=== PATIENT | female | born 1990 | race Caucasian/White ===

== ENCOUNTER 2021-02-17 09:04 | Emergency (ER) | payer SELFPAY ==
[~2021-02-17] VITALS: Ht 157.5 cm; Wt 56.8 kg
[~2021-02-17 09:04] MED LIST: ULTRAM50 MG PO
[2021-02-17] MEDS ORDERED: AMOX/K CLAV875 M1 PO (09:37)
[2021-02-17 09:51] VITALS: BP 129/85
== END 2021-02-17 09:58 | disposition home or self-care (01) | DRG 153 ==
LOC: ED 09:04
DX: J32.9 Chronic sinusitis, unspecified (principal); F17.200 Nicotine dependence, unspecified, uncomplicated

== ENCOUNTER 2023-01-19 16:37 | Emergency (ER) | payer OTHER ==
[~2023-01-19] VITALS: Ht 152.4 cm; Wt 60.2 kg
[2023-01-19] VITALS (7 sets, daily range): BP systolic 101–131; BP diastolic 57–98
[~2023-01-19 16:37] MED LIST changes: +AMOX/K CLAV875 M1 PO
[2023-01-19] MEDS ORDERED: OB COMPLET2 PO (16:50)
[2023-01-19 17:12] LABS: URINE BILIRUBIN - DIPSTICK NEGATIVE (NEGATIVE); URINE BLOOD DIPSTICK NEGATIVE (NEGATIVE); URINE COLOR YELLOW; URINE GLUCOSE - DIPSTICK NEGATIVE (NEGATIVE); URINE KETONE TRACE mg/dL (NEGATIVE); URINE LEUK ESTERASE NEGATIVE (NEGATIVE); URINE PROTEIN - DIPSTICK NEGATIVE (NEG-TRACE); URINE SPECIFIC GRAVITY 1.025; URINE UROBILINOGEN - DIPSTICK 0.2 E.U./dL (0.2)
[2023-01-19 17:12] LABS: BASO% 0.2 % (0-3); EOS% 0.9 % (0-8); IMMATURE GRANULOCYTES 0.2 % (0.0-5.0); LYMPH% 24.4 % (15-41); MEAN CELL VOLUME 86.1 fL CALC (80.0-100.0); MEAN CORPUSCULAR HGB 29.4 pG CALC (26.0-32.0); MEAN CORPUSCULAR HGB CONC 34.2 g/dL CAL (32.0-36.0); MONO% 7.4 % (2-13); NEUT# 5.79 thou/uL (2.00-7.15); NEUT% 66.9 % (42-76); RED BLOOD COUNT 3.74 mill/uL (4.20-5.60); RED CELL DISTRI WIDTH 12.1 % (11.5-15.5)
[2023-01-19 17:13] LABS: HEMATOCRIT 32.2 % (37.0-47.0)
[2023-01-19 17:13] LABS: URINE NITRITE - DIPSTICK NEGATIVE (Negative)
[2023-01-19 17:26] LABS: ALBUMIN 4.3 g/dL (3.2-5.0); ALKALINE PHOSPHATASE 50 u/l (38-126); ANION GAP 14 (6-22 (CALC)); BUN 5 mg/dL (7-17); BUN/CREATININE RATIO 10 (12-20 (CALC)); CARBON DIOXIDE 21 mmol/l (22-30); CHLORIDE 107 mmol/l (95-108); CREATININE 0.5 mg/dL (0.5-1.0); GFR FOR AFR.AMER. > 60 ML/MIN (>=60 (CALC)); GFR OTHER RACES > 60 ML/MIN (>=60 (CALC)); POTASSIUM 3.9 mmol/l (3.5-5.1); SGOT/AST 20 u/l (14-36); SODIUM 138 mmol/l (137-146); TOTAL PROTEIN 6.9 g/dL (6.3-8.2)
[2023-01-19 18:09] LABS: BETA-HCG, QUANT(RESULT NUMBER) 95147 mIU/mL
[2023-01-19] MEDS ORDERED: [UNRECOGNIZED DRUG - OTHER] PO (19:40)
== END 2023-01-19 19:55 | disposition home or self-care (01) ==
LOC: ED 16:37
PROVIDERS: Family Medicine
DX: O20.0 Threatened abortion (principal); Z3A.12 12 weeks gestation of pregnancy

== ENCOUNTER 2024-11-01 09:51 | Emergency (ER) | payer OTHER ==
[~2024-11-01] VITALS: Ht 152.4 cm; Wt 59.8 kg
[~2024-11-01 09:51] MED LIST changes: +MOTRIN800 MG PO; +OB COMPLET2 PO; +[UNRECOGNIZED DRUG - OTHER] PO
[2024-11-01 10:22] VITALS: BP 128/79
[2024-11-01 11:07] LABS: BASO% 0.3 % (0-3); EOS% 0.8 % (0-8); HEMATOCRIT 37.7 % (37.0-47.0); IMMATURE GRANULOCYTES 0.1 % (0.0-5.0); LYMPH% 11.8 % (15-41); MEAN CELL VOLUME 87.1 fL CALC (80.0-100.0); MEAN CORPUSCULAR HGB 30.5 pG CALC (26.0-32.0); NEUT# 8.68 thou/uL (2.00-7.15); RED BLOOD COUNT 4.33 mill/uL (4.20-5.60); RED CELL DISTRI WIDTH 12.7 % (11.5-15.5)
[2024-11-01 11:13] LABS: HEMOGLOBIN 13.2 g/dl (12.0-16.0)
[2024-11-01 11:19] LABS: ALBUMIN 4.7 g/dL (3.2-5.0); BUN 8 mg/dL (7-17); BUN/CREATININE RATIO 12 (12-20 (CALC)); CHLORIDE 105 mmol/l (95-108); CREATININE 0.6 mg/dL (0.5-1.0); ESTIMATED GFR 122 ML/MIN (>=90 (CALC)); POTASSIUM 4.4 mmol/l (3.5-5.1); SGOT/AST 26 u/l (14-36); SODIUM 139 mmol/l (137-146); TOTAL PROTEIN 7.5 g/dL (6.3-8.2)
[2024-11-01 11:25] LABS: ALKALINE PHOSPHATASE 80 u/l (38-126); ANION GAP 12 (6-22 (CALC)); BILIRUBIN, TOTAL 0.5 mg/dL (0.02-1.3); CARBON DIOXIDE 26 mmol/l (22-30)
[2024-11-01] MEDS ORDERED: KETOROLAC TROMETHAMINE 30 MG/ML SDV IV ONE (11:30)
[2024-11-01 11:46] VITALS: BP 113/72
[2024-11-01 12:00] VITALS: BP 122/80
[2024-11-01 12:15] VITALS: BP 114/71
[2024-11-01] MEDS ORDERED: ZPAK PO (12:26)
[2024-11-01 12:32] VITALS: BP 114/71
== END 2024-11-01 12:43 | disposition home or self-care (01) ==
LOC: ED 09:51
PROVIDERS: Family Medicine
DX: J06.9 Acute upper respiratory infection, unspecified (principal); Z20.822 Contact with and (suspected) exposure to COVID-19

== ENCOUNTER 2024-11-06 15:27 | Emergency (ER) | payer OTHER ==
[~2024-11-06] VITALS: Ht 152.4 cm; Wt 72.0 kg
[~2024-11-06 15:27] MED LIST changes: +ZPAK PO
[2024-11-06 15:36] VITALS: BP 121/80
[2024-11-06 15:45] VITALS: BP 121/72
[2024-11-06] MEDS ORDERED: ERYTHROMYCIN OPTHALMIC 5 MG/GM TUBE OD ONE (15:50)
[2024-11-06] MEDS ORDERED: FLUORESCEIN SODIUM 1 MG EA OD ONE (15:50)
[2024-11-06] MEDS ORDERED: Diph, Acellular Pertussis, Tet 0.5 ML/VIAL (Tdap) SDV IM ONE (15:50)
[2024-11-06] MEDS ORDERED: MAXITROL0.11 OD (16:36)
== END 2024-11-06 16:51 | disposition home or self-care (01) | DRG 115 ==
LOC: ED 15:27
PROC: 08C8XZZ Extirpation of Matter from Right Cornea, External Approach (ICD-10-PCS; principal; 2024-11-06)
DX: T15.01XA Foreign body in cornea, right eye, initial encounter (principal); W44.9XXA Unspecified foreign body entering into or through a natural orifice, initial encounter; Y93.89 Activity, other specified; Y92.69 Other specified industrial and construction area as the place of occurrence of the external cause; Y99.0 Civilian activity done for income or pay
CPT/HCPCS: 90715